=== PATIENT | male | born 1955 | race Caucasian/White ===

== ENCOUNTER 2021-03-17 07:33 | Emergency (ER) | payer BC, OTHER ==
--- NOTE | 2021-03-17 07:59 | EDM.PDOC ---
ED HPI GENERAL MEDICAL PROBLEM - General Chief Complaint: Chest Pain Stated Complaint: CHEST PAINS/BLOOD CLOT OR BROKEN RIBS?? Time Seen by Provider: 03/17/21 07:58 Source of Information: Reports: Patient, Old Records, RN, RN Notes Reviewed History Limitations: Reports: No Limitations - History of Present Illness INITIAL COMMENTS - FREE TEXT/NARRATIVE: Pt presents to ER from home by POV with c/o left chest wall/rib pain. Pt states he fell on a large rock 6 days ago and had severe pain. The pain was slowly improving until last night when it suddenly became worse that it was originally. Pt denies subsequent injury, fall, cough, or heavy lifting. Pt states it hurts to move or breath. Onset Date: 03/11/21 Duration: Getting Worse Location: Reports: Chest Quality: Reports: Ache Severity: Severe Improves with: Reports: Immobilization, Rest Worsens with: Reports: Breathing, Movement Context: Reports: Other (Fall) Associated Symptoms: Reports: No Other Symptoms Left Anterior Chest Pain Score (Numeric/FACES): 9 - Related Data Allergies Allergy/AdvReac Type Severity Reaction Status Date / Time No Known Allergies Allergy Verified 03/17/21 07:48 Home Meds: Home Meds . [Unable to Verify Home Med List] 03/17/21 [History] Past Medical History Endocrine/Metabolic History: Reports: Obesity/BMI 30+ Social & Family History - Family History Family Medical History: No Pertinent Family History - Living Situation & Occupation Living situation: Reports: , with Spouse ED ROS GENERAL - Review of Systems Review Of Systems: Comprehensive ROS is negative, except as noted in HPI. ED EXAM, GENERAL - Physical Exam Exam: See Below Exam Limited By: No Limitations General Appearance: Alert, WD/WN, No Apparent Distress, Obese Throat/Mouth: Normal Lips, Normal Voice, No Airway Compromise Head: Atraumatic, Normocephalic Neck: Normal Inspection, Supple, Non-Tender, Full Range of Motion Respiratory/Chest: No Respiratory Distress, Lungs Clear, No Accessory Muscle Use, Decreased Breath Sounds, Other (Left anterior/lateral chest wall tender just below the breast line, no visible swelling, bruising, or deformity.). No: Crackles, Rales, Rhonchi, Wheezing Cardiovascular: Regular Rate, Rhythm, Tachycardia GI/Abdominal: Normal Bowel Sounds, Soft, Non-Tender, Other (Benign obese abdomen) Back Exam: CVA Tenderness (L) (Mild), Paraspinal Tenderness (Left thoracic). No: CVA Tenderness (R), Vertebral Tenderness Extremities: Normal Inspection Neurological: Alert, Oriented, Normal Cognition, No Motor/Sensory Deficits Psychiatric: Normal Affect, Normal Mood Skin Exam: Warm, Dry, Intact, Normal Color, No Rash Course - Vital Signs Last Recorded V/S: Last Vital Signs Temp 97.4 F 03/17/21 07:57 Pulse 120 H 03/17/21 07:57 Resp 24 H 03/17/21 07:57 BP 104/85 03/17/21 07:57 Pulse Ox 94 L 03/17/21 07:57 - Orders/Labs/Meds Orders: Active Orders 24 hr Category Date Time Status Incentive Spirometry [RT Incentive Spirometry] [RC] Care 03/17/21 09:10 Ordered ASDIRECTED Peripheral IV Care [RC] . DIRECTED Care 03/17/21 08:03 Active COMPREHENSIVE METABOLIC PN,CMP [CHEM] Stat Lab 03/17/21 09:03 Received D Dimer [D-DIMER QUANTITATIVE] [COAG] Stat Lab 03/17/21 09:03 Received Sodium Chloride 0.9% [Saline Flush] Med 03/17/21 08:03 Active 10 ml FLUSH ASDIRECTED PRN Peripheral IV Insertion Adult [OM.PC] Stat Oth 03/17/21 08:03 Ordered Medication Orders Sodium Chloride (Sodium Chloride 0.9% 10 Ml Syringe) 10 ml FLUSH ASDIRECTED PRN PRN Reason: Keep Vein Open Last Admin: 03/17/21 08:17 Dose: 10 ml Documented by: [email or web address] Labs: Laboratory Tests 03/17/21 Range/Units 09:03 WBC 12.0 H (5.0-10.0) 10^3/uL RBC 4.59 L (4.6-6.2) 10^6/uL Hgb 14.6 (14.0-18.0) g/dL Hct 45.9 (40.0-54.0) % MCV 100.0 (80-100) fL MCH 31.8 (27.0-34.0) pg MCHC 31.8 L (33.0-35.0) g/dL Plt Count 215 (150-450) 10^3/uL Neut % (Auto) 82.2 H (42.2-75.2) % Lymph % (Auto) 7.1 L (20.5-50.1) % Fannin % (Auto) 10.3 H (2-8) % Eos % (Auto) 0.2 L (1.0-3.0) % Baso % (Auto) 0.2 (0.0-1.0) % Meds: Medications Generic Name Dose Route Start Last Admin Trade Name Freq PRN Reason Stop Dose Admin Sodium Chloride 10 ml 03/17/21 08:03 03/17/21 08:17 Sodium Chloride 0.9% 10 Ml Syringe FLUSH 10 ml ASDIRECTED PRN Administration Keep Vein Open Discontinued Medications Generic Name Dose Route Start Last Admin Trade Name Freq PRN Reason Stop Dose Admin Hydromorphone HCl 1 mg 03/17/21 08:03 03/17/21 08:17 Hydromorphone 1 Mg/Ml Syringe IVPUSH 03/17/21 08:04 1 mg ONETIME ONE Administration Ketorolac Tromethamine 30 mg 03/17/21 08:03 03/17/21 08:17 Ketorolac 30 Mg/Ml Sdv IVPUSH 03/17/21 08:04 30 mg ONETIME ONE Administration Ondansetron HCl 4 mg 03/17/21 08:03 03/17/21 08:17 Ondansetron 4 Mg/2 Ml Sdv IV 03/17/21 08:04 4 mg ONETIME ONE Administration - Radiology Interpretation Free Text/Narrative:: CT Chest: Left 6th rib fracture, see Rad. report. Departure - Departure Time of Disposition: 09:14 Disposition: Home, Self-Care 01 Condition: Good Clinical Impression: Left rib fracture Qualifiers: Encounter type: initial encounter Rib fracture type: single rib Fracture type: closed Qualified Code(s): S22.32XA - Fracture of one rib, left side, initial encounter for closed fracture - Discharge Information *PRESCRIPTION DRUG MONITORING PROGRAM REVIEWED*: No *COPY OF PRESCRIPTION DRUG MONITORING REPORT IN PATIENT JARAD: No Instructions: Rib Fracture Forms: ED Department Discharge Additional Instructions: Rx: Hydrocodone APAP 10mg/325mg *Do not drive while under the influence of this medication. Use a stool softener and/or eat prunes while taking this medication to avoid constipation. Rx: Naprosyn 500mg *Take with meals. Use the Incentive Spirometer as instructed by the respiratory therapist one every hour while awake until rib pain resolves. Follow up in clinic for recheck if not improving as expected in 2 to 3 weeks. Sepsis Event Note (ED) - Focused Exam Vital Signs: Vital Signs Temp Pulse Resp BP Pulse Ox 03/17/21 07:57 97.4 F 120 H 24 H 104/85 94 L - My Orders Last 24 Hours: My Active Orders 03/17/21 08:03 Peripheral IV Care [RC] . DIRECTED Sodium Chloride 0.9% [Saline Flush] 10 ml FLUSH ASDIRECTED PRN Peripheral IV Insertion Adult [OM.PC] Stat 03/17/21 09:03 COMPREHENSIVE METABOLIC PN,CMP [CHEM] Stat D Dimer [D-DIMER QUANTITATIVE] [COAG] Stat 03/17/21 09:10 Incentive Spirometry [RT Incentive Spirometry] [RC] ASDIRECTED - Assessment/Plan Last 24 Hours: My Active Orders 03/17/21 08:03 Peripheral IV Care [RC] . DIRECTED Sodium Chloride 0.9% [Saline Flush] 10 ml FLUSH ASDIRECTED PRN Peripheral IV Insertion Adult [OM.PC] Stat 03/17/21 09:03 COMPREHENSIVE METABOLIC PN,CMP [CHEM] Stat D Dimer [D-DIMER QUANTITATIVE] [COAG] Stat 03/17/21 09:10 Incentive Spirometry [RT Incentive Spirometry] [RC] ASDIRECTED
[2021-03-17] MEDS ORDERED: HYDROmorphone 1 MG/ML Syringe IVPUSH ONE (08:03)
[2021-03-17] MEDS ORDERED: Ketorolac 30 MG/ML SDV IVPUSH ONE (08:03)
[2021-03-17] MEDS ORDERED: Sodium Chloride 0.9% 10 ML Syringe FLUSH PRN (08:03)
[2021-03-17] MEDS ORDERED: Ondansetron 4 MG/2 ML SDV IV ONE (08:03)
--- NOTE | 2021-03-17 09:03 | CT ---
PROCEDURE INFORMATION: Exam: CT Chest Without Contrast; Diagnostic Exam date and time: 03/17/2021 8:22 AM Age: 65 years old Clinical indication: Left-sided chest pain; Additional info: Fall 1 week ago, sudden increase lft chest pain TECHNIQUE: Imaging protocol: Diagnostic computed tomography of the chest without contrast. Radiation optimization: All CT scans at this facility use at least one of these dose optimization techniques: automated exposure control; mA and/or kV adjustment per patient size (includes targeted exams where dose is matched to clinical indication); or iterative reconstruction. COMPARISON: No relevant prior studies available. FINDINGS: Lungs: Dependent and linear atelectasis at the right base. Pleural spaces: Trace left pleural effusion with adjacent compressive atelectasis. Heart: Cardiomegaly. Atherosclerotic disease of the coronary arteries. Mediastinal space: Small hiatal hernia. Aorta: Unremarkable. No aortic aneurysm. Lymph nodes: Unremarkable. No enlarged lymph nodes. Liver: Hepatomegaly and steatosis. Bones/joints: Screw the left glenoid Acute nondisplaced fracture the left anterolateral 6th rib. Multilevel degenerative disease the thoracic spine. Soft tissues: Unremarkable. IMPRESSION: 1. Acute nondisplaced fracture the left anterolateral 6th rib. 2. Trace left pleural effusion with adjacent compressive atelectasis. 3. Hepatomegaly and steatosis.
[2021-03-17 09:30] LABS: ANION GAP 13.7 mEq/L (7-13)
== END 2021-03-17 09:24 | disposition home or self-care (01) ==
LOC: DL.ED 07:33
DX: S22.32XA Fracture of one rib, left side, initial encounter for closed fracture (principal); E66.9 Obesity, unspecified; Z68.41 Body mass index [BMI] 40.0-44.9, adult; W18.09XA Striking against other object with subsequent fall, initial encounter
CPT/HCPCS: 36415; 71250; 80053; 85025; 85379; 94010; 96374; 96375; 99283; 99284-25; J1170; J1885; J2405

== ENCOUNTER 2022-09-03 17:09 | Emergency (ER) | payer OTHER ==
[2022-09-03] MEDS ORDERED: Acetaminophen/oxyCODONE 325-5 MG Tab PO ONE (17:10)
[2022-09-03] MEDS ORDERED: Cephalexin 500 MG Cap PO ONE ×2 (17:10→18:59)
[2022-09-03] MEDS ORDERED: Lidocaine 1% 10 ML MDV INJECT ONE (17:36)
[2022-09-03] MEDS ORDERED: Bacitracin Oint 1 GM U/D Packet TOP ONE (17:36)
[2022-09-03] MEDS ORDERED: Diphtheria,Pertussis(Acell),Tetanus Vaccine 0.5 ML Syringe IM ONE ×2 (17:36→19:11)
[2022-09-03] MEDS ORDERED: Acetaminophen/oxyCODONE 325-5 MG Tab ONE (19:07)
[2022-09-03] MEDS ORDERED: Cephalexin 500 MG Cap ONE (19:07)
== END 2022-09-03 19:20 | disposition home or self-care (01) ==
LOC: DL.ED 17:09
DX: S62.636B Displaced fracture of distal phalanx of right little finger, initial encounter for open fracture (principal); S61.214A Laceration without foreign body of right ring finger without damage to nail, initial encounter; I10 Essential (primary) hypertension; E78.00 Pure hypercholesterolemia, unspecified; E66.9 Obesity, unspecified; Z68.41 Body mass index [BMI] 40.0-44.9, adult; Z23 Encounter for immunization; W23.0XXA Caught, crushed, jammed, or pinched between moving objects, initial encounter
CPT/HCPCS: 12002; 73140; 90471; 90715; 99283; A9270

== ENCOUNTER 2022-11-03 10:14 | Emergency (ER) | payer OTHER ==
[2022-11-03] MEDS ORDERED: Sodium Chloride 0.9% 10 ML Syringe FLUSH PRN (10:30)
[2022-11-03] MEDS ORDERED: HYDROmorphone 0.5 MG/0.5 ML Syringe IVPUSH ONE (10:34)
[2022-11-03] MEDS ORDERED: Ondansetron 4 MG/2 ML SDV IVPUSH ONE (10:34)
[2022-11-03 11:03] LABS: ANION GAP 14.7 mEq/L (7-13); CHLORIDE,CL 103 mmol/L (98-107); SODIUM,NA 139 mmol/L (136-145)
[2022-11-03 11:04] LABS: ESTIMATED GFR 64 mL/min (>=60)
[2022-11-03] MEDS ORDERED: Iopamidol 612 MG/ML 100 ML Bottle IVPUSH ONE (11:19)
== END 2022-11-03 15:29 | disposition home or self-care (01) ==
LOC: DL.ED 10:14
DX: U07.1 COVID-19 (principal); K42.0 Umbilical hernia with obstruction, without gangrene; I10 Essential (primary) hypertension; I48.91 Unspecified atrial fibrillation; E78.00 Pure hypercholesterolemia, unspecified; E66.9 Obesity, unspecified; Z68.30 Body mass index [BMI] 30.0-30.9, adult; Z79.01 Long term (current) use of anticoagulants; Z79.899 Other long term (current) drug therapy
CPT/HCPCS: 36415; 74177; 80053; 83605; 85025; 86140; 87040; 87635; 93005; 94762; 96374; 96375; 99284; J1170; J2405; J3490; Q9967; U0002

== ENCOUNTER 2023-06-15 15:05 | Emergency (ER) | payer MEDICARE, OTHER ==
[2023-06-15] MEDS ORDERED: Sodium Chloride 0.9% 10 ML Syringe FLUSH PRN (15:13)
[2023-06-15] MEDS ORDERED: Furosemide 40 MG/4 ML VIAL IVPUSH ONE ×2 (15:13→15:57)
[2023-06-15 15:31] LABS: O2 DELIVERY DEVICE NON REBR MASK
[2023-06-15 15:33] LABS: BASE EXCESS ARTERIAL 5 mmol/L ((-2)-(+3)); BICARBONATE,ARTERIAL 32.3 mmol/L (22-26); O2 SATURATION ARTERIAL 98 % (95-100); PH,ARTERIAL 7.31 (7.35-7.45); PO2 ARTERIAL 118 mmHg (70-100)
[2023-06-15 15:34] LABS: BASOPHILS PERCENT AUTO 0.4 % (0.0-1.0); EOSINOPHILS PERCENT AUTO 2.1 % (1.0-3.0); HEMATOCRIT 45.5 % (40.0-54.0); HEMOGLOBIN 12.9 g/dL (14.0-18.0); LYMPHOCYTES PERCENT AUTO 23.9 % (20.5-50.1); MEAN CORPUSCULAR HEMOGLOBIN 25.9 pg (27.0-34.0); MEAN CORPUSCULAR HGB CONC 28.4 g/dL (33.0-35.0); MEAN CORPUSCULAR VOLUME 91.2 fL (80-100); MONOCYTES PERCENT AUTO 13.1 % (2-8); NEUTROPHILS PERCENT AUTO 60.5 % (42.2-75.2); PLATELET COUNT,PLT 202 10^3/uL (150-450); RED BLOOD CELL COUNT 4.99 10^6/uL (4.6-6.2); WHITE BLOOD CELL COUNT,WBC 5.4 10^3/uL (5.0-10.0)
[2023-06-15 15:35] LABS: ALLEN TEST positive; PCO2 ARTERIAL 67 mmHg (35-45)
[2023-06-15 15:55] LABS: B-TYPE NATRIURETIC PEPTIDE,BNP 381 pg/ml (0-100)
[2023-06-15 16:02] LABS: LACTIC ACID 1.8 mmol/L (0.4-2.0)
[2023-06-15 16:05] LABS: INR 1.5 (0.9-1.2); PROTHROMBIN TIME 15.1 SEC (9.0-12.0); PTT,PARTIAL THROMBOPLSTIN TIME 33.9 SEC (22.0-34.0)
[2023-06-15 16:09] LABS: ALANINE AMINOTRANSFERASE,ALT 14 U/L (16-63); ALBUMIN 3.3 g/dL (3.4-5.0); ALKALINE PHOSPHATASE 58 U/L (46-116); ANION GAP 10.8 mEq/L (7-13); ASPARTATE AMNIOTRANSFERASE,AST 13 U/L (15-37); BILIRUBIN TOTAL 0.9 mg/dL (0.2-1.0); BLOOD UREA NITROGEN,BUN 15 mg/dL (7-18); BUN/CREATININE RATIO 15.5 (No establ ref range); C-REACTIVE PROTEIN 0.6 mg/dL (0.0-0.9); CALCIUM 8.5 mg/dL (8.5-10.1); CARBON DIOXIDE,CO2 32 mmol/L (21-32); CHLORIDE,CL 103 mmol/L (98-107); CREATININE 0.97 mg/dL (0.70-1.30); GLUCOSE RANDOM 122 mg/dL (70-99); MAGNESIUM 1.3 mg/dL (1.8-2.4); POTASSIUM,K 3.8 mmol/L (3.5-5.1); PROTEIN TOTAL,TP 7.1 g/dL (6.4-8.2); SODIUM,NA 142 mmol/L (136-145)
[2023-06-15 16:12] LABS: A/G RATIO 0.87; ESTIMATED GFR 86 mL/min (>=60)
[2023-06-15] MEDS ORDERED: Dexamethasone 4 MG/ML SDV IVPUSH ONE (17:15)
== END 2023-06-15 18:42 ==
LOC: DL.ED 15:05
DX: U07.1 COVID-19 (principal); J96.02 Acute respiratory failure with hypercapnia; I51.7 Cardiomegaly; J81.0 Acute pulmonary edema; I48.91 Unspecified atrial fibrillation; E78.00 Pure hypercholesterolemia, unspecified; I10 Essential (primary) hypertension; E66.9 Obesity, unspecified; Z86.16 Personal history of COVID-19; Z79.899 Other long term (current) drug therapy; Z68.41 Body mass index [BMI] 40.0-44.9, adult
CPT/HCPCS: 36415; 36600; 51702; 71045; 80053; 82803; 83605; 83735; 83880; 84145; 84484; 85025; 85379; 85610; 85730; 86140; 87040; 87804; 93005; 93010; 94660; 96374; 96375; 96376; 99285; J1100; J1940; U0002; J3490

== ENCOUNTER 2024-06-12 21:07 | Emergency (ER) | payer MEDICARE, BC ==
[2024-06-12] MEDS: Silver Nitrate Applicator Each TOP ONE (21:26)
== END 2024-06-12 21:48 | disposition home or self-care (01) ==
LOC: DL.ED 21:07
DX: S61.216A Laceration without foreign body of right little finger without damage to nail, initial encounter (principal); E78.00 Pure hypercholesterolemia, unspecified; I10 Essential (primary) hypertension; E66.9 Obesity, unspecified; Z68.38 Body mass index [BMI] 38.0-38.9, adult; Z86.16 Personal history of COVID-19; Z79.899 Other long term (current) drug therapy; X58.XXXA Exposure to other specified factors, initial encounter
CPT/HCPCS: 12001; 99282

== ENCOUNTER 2024-08-26 10:42 | Emergency (ER) | payer MEDICARE, BC ==
[2024-08-26] MEDS: Sodium Chloride 0.9% 10 ML Syringe FLUSH PRN (11:00)
[2024-08-26 11:13] LABS: BASOPHILS PERCENT AUTO 0.7 % (0.0-1.0); EOSINOPHILS PERCENT AUTO 2.6 % (1.0-3.0); MEAN CORPUSCULAR HGB CONC 31.8 g/dL (33.0-35.0); MEAN CORPUSCULAR VOLUME 100.5 fL (80-100); MONOCYTES PERCENT AUTO 11.3 % (2-8); NEUTROPHILS PERCENT AUTO 57.4 % (42.2-75.2); PLATELET COUNT,PLT 218 10^3/uL (150-450); RED BLOOD CELL COUNT 4.38 10^6/uL (4.6-6.2); WHITE BLOOD CELL COUNT,WBC 7.2 10^3/uL (5.0-10.0)
[2024-08-26 11:31] LABS: ALBUMIN 3.8 g/dL (3.4-5.0); BILIRUBIN TOTAL 0.6 mg/dL (0.2-1.0); BUN/CREATININE RATIO 19.7 (No establ ref range); C-REACTIVE PROTEIN 1.06 ng/dL (<=0.50); CALCIUM 9.7 mg/dL (8.5-10.1); CREATININE 1.17 mg/dL (0.70-1.30); EST CRCL DRUG DOSING (CG) 62.39 mL/min; PROTEIN TOTAL,TP 7.7 g/dL (6.4-8.2)
[2024-08-26] MEDS: Magnesium Sulfate/Water Premix 2 GM in Premix Bag 1 BAG IV ONE (11:56)
== END 2024-08-26 13:49 | disposition home or self-care (01) ==
LOC: DL.ED 10:42
DX: E83.42 Hypomagnesemia (principal); I10 Essential (primary) hypertension; I48.91 Unspecified atrial fibrillation; E78.00 Pure hypercholesterolemia, unspecified; E66.9 Obesity, unspecified; Z86.16 Personal history of COVID-19; Z79.899 Other long term (current) drug therapy; Z79.01 Long term (current) use of anticoagulants; Z68.39 Body mass index [BMI] 39.0-39.9, adult
CPT/HCPCS: 36415; 80053; 82607; 83735; 85025; 85379; 86140; 96365; 99283; 99284; J3475; J3490

== ENCOUNTER 2025-09-17 06:21 | Day surgery (SDC) | payer MEDICARE, BC ==
[2025-09-17] MEDS ORDERED: Dexamethasone 4 MG/ML SDV IV ONE (06:22)
[2025-09-17] MEDS ORDERED: Midazolam 1 MG/ML 2 ML SDV IV ONE (06:22)
[2025-09-17] MEDS ORDERED: Sodium Chloride 0.9% 10 ML Syringe IV ONE (06:22)
[2025-09-17] MEDS ORDERED: Ondansetron 4 MG/2 ML SDV IVPUSH PRN (06:30)
[2025-09-17] MEDS: Povidone-Iodine 5% Sterile Ophth Soln 30 ML Bottle EYELF ONE ×2 (06:45→07:53)
[2025-09-17] MEDS: Moxifloxacin 0.5% Ophth Soln 3 ML Bottle EYELF ONE (06:46)
[2025-09-17] MEDS: Phenylephrine 10% Ophth Soln 5 ML Bot EYELF ONE (06:48)
[2025-09-17] MEDS: Timolol Maleate 0.5% Ophth Soln 5 ML Bottle EYELF ONE (06:49)
[2025-09-17] MEDS: Cataract Ophth Solution EYELF ONE (06:50)
[2025-09-17] MEDS ORDERED: Dexamethasone 4 MG/ML SDV ONE (06:51)
[2025-09-17] MEDS: Apraclonidine 0.5% Ophth Soln 5 ML Bot EYELF ONE (07:59)
[2025-09-17] MEDS: Diclofenac Sodium 0.1% Ophth Soln 5 ML Bottle EYELF ONE (08:00)
[2025-09-17] MEDS: Dexamethasone/Neomycin/Polymyxin B Ophth Oint 3.5 GM Tube EYELF ONE (08:01)
== END 2025-09-17 09:00 | disposition home or self-care (01) ==
LOC: DL.SDS 06:21
PROVIDERS: ATTEND Ophthalmology
DX: E11.36 Type 2 diabetes mellitus with diabetic cataract (principal); H25.812 Combined forms of age-related cataract, left eye; I10 Essential (primary) hypertension; E78.5 Hyperlipidemia, unspecified; E11.65 Type 2 diabetes mellitus with hyperglycemia; G47.33 Obstructive sleep apnea (adult) (pediatric); K21.9 Gastro-esophageal reflux disease without esophagitis; E66.813 Obesity, class 3; Z68.41 Body mass index [BMI] 40.0-44.9, adult; Z79.899 Other long term (current) drug therapy
CPT/HCPCS: 66984; A9270; J1100; J2003; J2250; J3373; J3490

== ENCOUNTER → 2025-10-01 | Day surgery (SDC) | payer MEDICARE, BC ==
[~2025-10-01] MED LIST: Dexamethasone 4 MG/ML SDV IV ONE; Midazolam 1 MG/ML 2 ML SDV IV ONE; Ondansetron 4 MG/2 ML SDV IVPUSH PRN; Sodium Chloride 0.9% 10 ML Syringe IV ONE
[2025-10-01] MEDS: Povidone-Iodine 5% Sterile Ophth Soln 30 ML Bottle EYERT ONE ×2 (06:45→08:27)
[2025-10-01] MEDS: Moxifloxacin 0.5% Ophth Soln 3 ML Bottle EYERT ONE (06:45)
[2025-10-01] MEDS: Phenylephrine 10% Ophth Soln 5 ML Bot EYERT ONE (06:46)
[2025-10-01] MEDS: Timolol Maleate 0.5% Ophth Soln 5 ML Bottle EYERT ONE (06:48)
[2025-10-01] MEDS: Cataract Ophth Solution EYERT ONE (06:49)
[2025-10-01] MEDS: Apraclonidine 0.5% Ophth Soln 5 ML Bot EYERT ONE (08:27)
[2025-10-01] MEDS: Diclofenac Sodium 0.1% Ophth Soln 5 ML Bottle EYERT ONE (08:28)
[2025-10-01] MEDS: Dexamethasone/Neomycin/Polymyxin B Ophth Oint 3.5 GM Tube EYERT ONE (08:29)
== END | disposition home or self-care (01) ==
LOC: DL.SDS 06:23
PROVIDERS: ATTEND Ophthalmology
DX: E11.36 Type 2 diabetes mellitus with diabetic cataract (principal); H25.811 Combined forms of age-related cataract, right eye; E79.0 Hyperuricemia without signs of inflammatory arthritis and tophaceous disease; E66.813 Obesity, class 3; I10 Essential (primary) hypertension; E78.2 Mixed hyperlipidemia; I48.19 Other persistent atrial fibrillation; I27.20 Pulmonary hypertension, unspecified; G47.33 Obstructive sleep apnea (adult) (pediatric); Z68.41 Body mass index [BMI] 40.0-44.9, adult; Z87.891 Personal history of nicotine dependence; Z79.899 Other long term (current) drug therapy
CPT/HCPCS: A9270-GY; J1100; J2003; J2250; J3373; J3490; V2632